=== PATIENT | male | born 1935 | race Caucasian/White ===

== ENCOUNTER 2025-01-23 11:10 | Emergency (ER) | payer MEDICARE ==
[2025-01-23 11:25] LABS: APPEARANCE,URINE TURBID; GLUCOSE,URINE NEGATIVE (NEGATIVE); OCCULT BLOOD,URINE LARGE (NEGATIVE)
[2025-01-23] MEDS: Lidocaine 2% HCl 11 ML Jelly Filled Syringe TOP ONE (11:31)
[2025-01-23] MEDS: Lidocaine 2% HCl 11 ML Jelly Filled Syringe ONE (11:52)
[2025-01-23] MEDS: Take Home: Nitrofurantoin Monohydrate/Macrocrystalline 100 MG, 6 Cap Pack PO ONE (11:56)
[2025-01-23] MEDS: cefTRIAXone 1 GM, Lidocaine 1% 2.1 ML IM SCH (12:00)
== END 2025-01-23 12:35 | disposition home or self-care (01) ==
LOC: LL.ED 11:10
DX: N39.0 Urinary tract infection, site not specified (principal); R33.9 Retention of urine, unspecified; Z79.899 Other long term (current) drug therapy
CPT/HCPCS: 51702; 81001; 87086; 87088; 87186; 96372; 99283; 99284; A9270; J0696; J2003